=== PATIENT | female | born 1950 | race African-American/Black ===

== ENCOUNTER 2018-10-22 05:42 | Day surgery (SDC) | payer MEDICARE, OTHER ==
[2018-10-22] VITALS (12 sets, daily range): BP systolic 101–139; BP diastolic 53–75
[~2018-10-22] VITALS: Ht 149.9 cm; Wt 89.8 kg
--- NOTE | 2018-10-22 01:00 | Pre-op HX & Phy Repo 2 SIG ---
DATE OF ADMISSION: 10/22/2018 PREOPERATIVE CARDIOVASCULAR HISTORY AND PHYSICAL DATE OF SURGERY: 10/22/2018 SURGEON: Dr. Samuel Loza. PROCEDURE: Bunionectomy. HISTORY OF PRESENT ILLNESS: This female, who presents to the hospital for elective bunion surgery due to increasing pain and foot deformity reducing her ambulatory capacity. 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 MEDICATIONS: Reviewed and reconciled. ALLERGIES: Include morphine and penicillin. FAMILY HISTORY: Noncontributory. SOCIAL HISTORY: Prior smoker 40 pack years. No alcohol or substance abuse. REVIEW OF SYSTEMS: An echocardiogram done as an outpatient revealed normal ejection fraction, concentric hypertrophy, diastolic relaxation abnormality, and minimal tricuspid regurgitation. Myocardial perfusion scan done at [facility] in 2017 revealed no evidence of flow-limiting coronary artery disease and normal ejection fraction. The patient's permanent pacemaker was interrogated on 10/07/2018 and noted to have adequate battery life and appropriate sensing and pacing mechanism. The patient is euthyroid, on replacement therapy. Diabetes is managed with diet alone. There is no history of seizure or stroke. She has not had any recent respiratory insufficiency, wheezing, congestion, or steroid use. PHYSICAL EXAMINATION: GENERAL: Well developed and well nourished, in no distress. Moderately obese. VITAL SIGNS: As noted in the medical record. HEENT: Conjunctivae pink. Sclerae are anicteric. Oropharynx clear. Mucous membranes moist. NECK: Supple. Carotid upstrokes without delay. No thyromegaly. No tracheal deviation. LUNGS: Clear. BREASTS: Pendulous. No discrete masses. CARDIAC: Regular rhythm and rate. Normal S1, S2 with no murmur, rub, or gallop. Permanent pacemaker site clean and dry with no skin breakdown. ABDOMEN: Obese, soft and nontender with no bruits or pulsatile masses. EXTREMITIES: With trace pitting edema. Good distal pulses. No clubbing or cyanosis. Bunion is prominent on both feet. DIAGNOSTIC DATA: EKG with atrial pacing. No acute process. LABORATORY DATA: Labs reviewed. ASSESSMENT: The patient is an acceptable candidate to proceed with bunionectomy at this time under general anesthesia without any significant increase in perioperative cardiopulmonary risks despite her multiple medical problems. She has been clinically stable for a number of years on her current regimen with her recent cardiopulmonary studies confirming this impression. Routine postoperative care plan is recommended to include respiratory hygiene, titration of cardiovascular medications, DVT prophylaxis, and symptom-guided pain control. Aaron Barfield M.D. DR: MICHELLE JOB#: [id number] CC:
[2018-10-22] MEDS ORDERED: ASCORBIC ACID500 M4 ORAL (06:32)
[2018-10-22] MEDS ORDERED: RISPERDAL2 MG ORAL (06:32)
[2018-10-22] MEDS ORDERED: FUROSEMIDE20 M1 ORAL (06:32)
[2018-10-22] MEDS ORDERED: DEPAKOTE250 MG PO (06:32)
[2018-10-22] MEDS ORDERED: DOCUSATE SODIU100 MG ORAL (06:32)
[2018-10-22] MEDS ORDERED: ASPIRIN81 MG ORAL (06:32)
[2018-10-22] MEDS ORDERED: OMEPRAZOLE20 M2 ORAL (06:32)
[2018-10-22] MEDS ORDERED: FISH OIL 1,2001 EAC2 PO (06:32)
[2018-10-22] MEDS ORDERED: ACETAMINOPHEN325 M1 ORAL (06:32)
[2018-10-22] MEDS ORDERED: SYNTHROID100 MCG ORAL (06:32)
[2018-10-22] MEDS ORDERED: LORATADINE10 M1 PO (06:32)
[2018-10-22] MEDS ORDERED: ZOLPIDEM TARTRA10 MG ORAL (06:32)
[2018-10-22] MEDS ORDERED: PROAIR HFA8.5 GM INH (06:32)
[2018-10-22] MEDS ORDERED: Bacitracin Oint 15gm Tube TOPIC ONE (07:09)
[2018-10-22] MEDS ORDERED: Bupivacaine 0.5% Inj 30 ml vial INJ ONE (07:09)
[2018-10-22] MEDS ORDERED: Dexamethasone 4mg/ml vial ONE (07:09)
[2018-10-22] MEDS ORDERED: Lidocaine 1% Plain 30 ml INJ ONE (07:10)
--- NOTE | 2018-10-22 07:17 | Anethesia Preoperative Eval ---
Anesthesia Pre-op PMH/ROS General Date of Evaluation: Oct 22, 2018 Time of Evaluation: 07:15 Anesthesiologist: Michelle Savage CRNA ASA Score: ASA 3 Mallampati Score Class I : Soft palate, uvula, fauces, pillars visible Class II: Soft palate, uvula, fauces visible Class III: Soft palate, base of uvula visible Class IV: Only hard plate visible Mallampati Classification: Class II Surgeon: Denia Diagnosis: LEFT bunion Surgical Procedure: LEFT bunionectomy Anesthesia History: none Social History: smoking Family History: no anesthesia problems Allergies: Coded Allergies: MORPHINE (Verified Allergy, Intermediate, "feeling nervous", 10/21/18) PENICILLINS (Verified Allergy, Intermediate, itch, 10/21/18) Medications: see eMAR Patient NPO?: Yes NPO Date: Oct 22, 2018 NPO Time: 00:00 Past Medical History Cardiovascular: Reports: HTN, CAD, PA, other - permanent pacemaker Pulmonary: Reports: COPD Gastrointestinal/Genitourinary: Reports: GERD Neurologic/Psychiatric: Reports: other - bipolar disorder Endocrine: Reports: DM - diet controlled, hypothyroidism Hematology/Immune: Reports: anemia Musculoskeletal/Integumentary: Reports: DDD, other - venous insufficiency Other: obesity - Morbid obesity PMH Narrative: as noted above PSxH Narrative: TKR, lumbar surgery Anesthesia Pre-op Phys. Exam Physician Exam Last Vital Signs Date Time Temp Pulse Resp B/P (MAP) Pulse Ox O2 Delivery O2 Flow Rate FiO2 10/22/18 06:14 97.5 86 18 135/75 98 Room Air Constitutional: NAD Neurologic: other - alert & oriented Cardiovascular: RRR Respiratory: CTA Gastrointestinal: S/NT/ND Airway Exam Mallampati Score: Class II MO: full Neck: FROM TMD: >3FB ROM: full Teeth: other - edentuous Dentures: upper, lower Anesthesia Pre-op A/P Studies Pre-op Studies: echo - Normal EF, concentric hypertrophy, diastolic relaxation Risk Assessment & Plan Assessment: ASA 3, ok to proceed Plan: MAC Status Change Before Surgery: No Pre-Antibiotics Drug: Michelle Barth CRNA Oct 22, 2018 07:17
[2018-10-22] MEDS ORDERED: Succinylcholine 20mg/ml 10ml vial ONE (07:18)
[2018-10-22] MEDS ORDERED: fentaNYL 100 mcg/2 mL IV ONE (07:23)
[2018-10-22] MEDS ORDERED: Propofol 200mg/20ml IV ONE (07:23)
[2018-10-22] MEDS ORDERED: Midazolam 2mg/2ml Inj ONE (07:23)
[2018-10-22] MEDS ORDERED: Lidocaine 1% MPF 10mg/ml 5ml ONE (07:24)
[2018-10-22] MEDS ORDERED: Sterile Water Irrig 1000ml IRRIG ONE (07:30)
[2018-10-22] MEDS ORDERED: LR 1000ml ONE (07:30)
[2018-10-22] MEDS ORDERED: NS Irrig 1000ml IRRIG ONE (07:34)
--- NOTE | 2018-10-22 07:34 | Pre-Procedure Note/Attestation ---
Pre-Procedure Note/Attestation Complete Prior to Procedure Planned Procedure: left Procedure Narrative: Bunionectomy left foot Indications for Procedure Pre-Operative Diagnosis: Hallux Valgus with bunion deformity left foot Attestation I attest that I discussed the nature of the procedure; its benefits; risks and complications; and alternatives (and the risks and benefits of such alternatives ), prior to the procedure, with the patient (or the patient's legal artist representative). I attest that, if there was a reasonable possibility of needing a blood transfusion, the patient (or the patient's legal artist representative) was given the [facility] standardized written summary, pursuant to the [place] Blood Safety Act ([place] Health and Safety Code # 1645, as amended). I attest that I re-evaluated the patient just prior to the surgery and that there has been no change in the patient's H&P, except as documented below: Samuel Loza DPM Oct 22, 2018 07:34
[2018-10-22] MEDS ORDERED: Ketorolac 30mg Inj IV PRN (08:30)
--- NOTE | 2018-10-22 08:47 | Brief Operative Note ---
Immediate Post Operative Note Operative Note Pre-op Diagnosis: Hallux Valgus with bunion deformity left foot Procedure: Pitt Bunionectomy left foot Post-op Diagnosis: same as pre-op Surgeon: Denia Anesthesiologist: Michelle Savage CRNA Anesthesia: MAC Specimen: yes Complications: none Condition: stable Fluids: 250 Estimated Blood Loss: none Drains: none Implant(s) used?: No Samuel Loza DPM Oct 22, 2018 08:47
--- NOTE | 2018-10-22 08:54 | Immediate Post-Op Evaluation ---
Immediate Post-Op Evalulation Immediate Post-Op Evalulation Procedure: LEFT foot bunionectomy, osteotomy Date of Evaluation: Oct 22, 2018 Time of Evaluation: 08:47 IV Fluids: LR 600 ml Estimated Blood Loss: minimal Blood Pressure Systolic: 139 Blood Pressure Diastolic: 73 Pulse Rate: 79 Respiratory Rate: 12 O2 Sat by Pulse Oximetry: 97 Temperature (Fahrenheit): 99 Pain Score (1-10): 0 Nausea: No Vomiting: No Complications none Patient Status: awake, patent Hydration Status: adequate Drug: cefazolin 2 gm IV Given Within 1 Hr of Incision: Yes Time Given: 07:45 Michelle Savage CRNA Oct 22, 2018 08:54
--- NOTE | 2018-10-22 10:30 | History and Physical Report ---
DATE OF ADMISSION: 10/22/2018 DATE OF PLANNED PROCEDURE: 10/22/2018 PLANNED PROCEDURE: Bunion surgery. HISTORY OF PRESENT ILLNESS: The patient is a pleasant female, who is now referred for elective bunion surgery due to foot pain. She has been followed by Dr. Loza and conservative treatment has not improved the patient's symptoms and she is now referred for elective surgery. The patient has otherwise been doing well. She denies any fevers or chills. She has had no chest pain. She denies any shortness of breath. PAST MEDICAL HISTORY: Significant for history of ischemic cardiomyopathy, history of chronic lower back pain, bipolar disorder, COPD, asthma, hypothyroidism, obesity, history of left total knee replacement, history of hypertensive heart disease, and pacemaker. CURRENT MEDICATIONS: Reconciled and reviewed. ALLERGIES: Include morphine and penicillin. FAMILY HISTORY: Noncontributory. SOCIAL HISTORY: The patient is a prior smoker, but quit. No alcohol. No drugs. REVIEW OF SYSTEMS: GENERAL: No fevers or chills. HEENT: No headaches or visual changes. CARDIOPULMONARY: No chest pain or shortness of breath. GASTROINTESTINAL: No nausea or vomiting. GENITOURINARY: No urgency or frequency. MUSCULOSKELETAL: Mild knee pain. NEUROLOGIC: No history of seizures. PHYSICAL EXAMINATION: VITAL SIGNS: Temperature 98 degrees, blood pressure 120/76, pulse 70, and respirations 20. GENERAL: The patient is well developed, in no apparent distress. HEART: Regular rate and rhythm. LUNGS: Clear. ABDOMEN: Soft, nontender, and nondistended. EXTREMITIES: Without clubbing, cyanosis, or edema. LABORATORY DATA: Preoperative labs were unremarkable. EKG showed a paced rhythm. ASSESSMENT: This is a pleasant female with a history of hypertensive heart disease, chronic obstructive pulmonary disease, asthma, pacemaker, and ischemic cardiomyopathy referred for bunion surgery. She is medically stable for the planned procedure. Perioperative risk is average for her age and sex. We would proceed as planned. The patient has been instructed to continue her antihypertensive medications. The patient may need perioperative breathing treatments in the postoperative period. The patient will be followed here in the hospital while she is inpatient. A separate cardiology clearance has also been obtained. Nick Perez M.D. DR: PHILLIP JOB#: [id number] CC:
--- NOTE | 2018-10-22 11:30 | 48 Hour Post Anesthesia Eval ---
Post Anesthesia Evaluation Procedure: LEFT foot bunionectomy, osteotomy Date of Evaluation: Oct 22, 2018 Time of Evaluation: 11:29 Blood Pressure Systolic: 120 0: 73 Pulse Rate: 70 Respiratory Rate: 20 Temperature (Fahrenheit): 97.0 O2 Sat by Pulse Oximetry: 97 Airway: patent Nausea: No Vomiting: No Pain Intensity: 0 Hydration Status: adequate Cardiopulmonary Status: stable Mental Status/LOC: patient returned to baseline Follow-up Care/Observations: per podiatry Post-Anesthesia Complications: none Follow-up care needed: N/A Michelle Savage CRNA Oct 22, 2018 11:30
--- NOTE | 2018-10-22 12:25 | Diagnostic Imaging Report ---
Indication: Postsurgical Comparison: None Findings: 3 views of the left foot were obtained. Bunionectomy and the resection of the first MTP joint are noted on the examination. There is soft tissue swelling. IMPRESSION: Postop confirmation
--- NOTE | 2018-10-22 19:00 | Operative Note - Dictated ---
DATE OF OPERATION: 10/22/2018 SURGEON: Samuel Loza D.P.M. ANESTHESIOLOGIST: Michelle Savage CRNA. ANESTHESIA: Local standby. PREOPERATIVE DIAGNOSIS: Hallux abductovalgus with bunion deformity, left foot. POSTOPERATIVE DIAGNOSES: Hallux abductovalgus with bunion deformity, left foot plus degenerative joint disease, left first metatarsophalangeal joint. PROCEDURES PERFORMED: 1. Pitt type bunionectomy, left foot. 2. Extensor hallucis longus tendon lengthening, left foot. DESCRIPTION OF THE OPERATION: The patient was brought to the operating room and was placed on the operating room table in the supine position. IV sedation was administered by the anesthesiologist. Local anesthetic consisting of 0.5% Marcaine plain total of 20 mL was administered to the left foot. An ankle tourniquet was applied to the left lower extremity. The foot was prepped and draped in the usual sterile manner. An Esmarch bandage was utilized to exsanguinate the leg and the left ankle tourniquet was inflated to 250 mmHg. Attention was directed to the left hallux where an approximately 6 centimeter curvilinear skin incision was centered over the first metatarsophalangeal joint. The incision was deepened utilizing sharp and blunt dissection with care being taken to cauterize and ligate all bleeders. At the level of the capsule, a linear type capsulotomy was performed. The capsule was reflected medially and laterally and the head of the first metatarsal and base of the proximal phalanx were exposed. At this point, utilizing a sagittal saw, the medial eminence of the first metatarsal head was resected in total. The remaining bone was rasped smooth. The wound was copiously flushed utilizing sterile saline. It should be noted that the cartilage over the head of the first metatarsal was destroyed in approximately 50% of the head and cartilaginous damage was also noted over the base of the intermediate phalanx. At this point, a sagittal saw was utilized to resect the base of the proximal phalanx. The base was resected in total and removed from the surgical site. The wound was copiously flushed utilizing sterile saline. At this point, the extensor tendon was isolated utilizing sharp and blunt dissection. Z type tendon lengthening was performed and the hallux was brought into a rectus position. The wound was copiously flushed utilizing sterile saline. The capsule was then reapproximated utilizing 3-0 Vicryl in a simple interrupted type stitch. Subcutaneous tissue was then reapproximated utilizing 4-0 Vicryl in a buried knot type stitch. The skin was then reapproximated utilizing 4-0 nylon in a simple interrupted type stitch. The wound was dressed utilizing Adaptic, 4 x 4 gauze, and 3 inch Capri. The left ankle tourniquet was deflated and vascular supply was noted to all digits left foot. The patient tolerated the procedure well and left the operating room to recovery room with all vital signs stable. Samuel Loza D.P.M. DR: YAA JOB#: [id number] CC:
--- NOTE | 2018-10-22 21:30 | History and Physical Report ---
DATE OF ADMISSION: 10/22/2018 HISTORY OF PRESENT ILLNESS: This is a 68-year-old, female that is admitted today for an outpatient bunionectomy of her left foot. The patient has been under my care for the past several months for painful left foot. She has been treated in the office with conservative care, which consisted of debridements and padding and shoe-gear modification without any success and the patient was consulted on surgical correction. PAST MEDICAL HISTORY: Remarkable for ischemic cardiomyopathy, bipolar disorder, chronic obstructive pulmonary disease, asthma, hypothyroidism, lower back pain, hypertensive heart disease, and pacemaker. The patient underwent left total knee replacement. MEDICATIONS: Lasix, Depakote, ProAir, aspirin, Synthroid, and Risperdal. ALLERGIES: Morphine and penicillin. PODIATRIC PHYSICAL EXAMINATION: VASCULAR STUDIES: The dorsalis pedis and posterior tibial arteries are equally palpable measuring 1/4 bilaterally. The capillary filling time is less than 4 seconds to all digits bilaterally Homans sign is negative. Mild varicosities are noted in bilateral lower extremity. NEUROLOGICAL: The reflexes Achilles and patellar are intact measuring 1/4 bilaterally. Babinski is negative. Clonus is absent in bilateral lower extremity. Sharp dull proprioception and vibration sensations are all intact in bilateral lower extremity. MUSCULOSKELETAL EXAMINATION: Reveals a stage IV hallux abductovalgus with bunion deformity bilaterally. The hallux is under riding the second digit bilaterally. There are nonreducible hammertoe deformities of digits 2 through 5 bilaterally. The range of motion of the first metatarsophalangeal joint is reduced bilaterally. Mild crepitation is noted on the left side. There is reduced range of motion of the rear foot and ankle bilaterally. Severe pes planus deformity is noted bilaterally with posterior tibial dysfunction on the left. DERMATOLOGICAL EXAMINATION: Reveals dystrophic mycotic nails bilaterally. There is callus formation over the plantar medial aspect of the left hallux. ASSESSMENT: 1. Hallux abductovalgus with bunion deformity. 2. Hammertoe deformity. 3. Painful callus, left foot. PLAN: The patient is admitted today for bunionectomy of her left foot. Risks ,complications, and alternatives were discussed with the patient and grandson. Postoperative instructions were given to the patient and grandson. Postoperative medication was dispensed to the patient. The patient elected to proceed with surgery. Samuel Loza D.P.M. DR: LISSETTE JOB#: [id number] CC:
== END 2018-10-22 10:20 | disposition home or self-care (01) ==
LOC: SUR 05:42
DX: M20.12 Hallux valgus (acquired), left foot (principal); M19.072 Primary osteoarthritis, left ankle and foot; I10 Essential (primary) hypertension; Z95.0 Presence of cardiac pacemaker; I25.2 Old myocardial infarction; M19.90 Unspecified osteoarthritis, unspecified site; F31.9 Bipolar disorder, unspecified; J44.9 Chronic obstructive pulmonary disease, unspecified; E03.9 Hypothyroidism, unspecified; Z88.6 Allergy status to analgesic agent; Z88.0 Allergy status to penicillin; Z87.891 Personal history of nicotine dependence; I11.9 Hypertensive heart disease without heart failure; E66.01 Morbid (severe) obesity due to excess calories; E11.9 Type 2 diabetes mellitus without complications; Z68.41 Body mass index [BMI] 40.0-44.9, adult
CPT/HCPCS: 28292; 73630; J0330; J0690; J1100; J2001; J2250; J2704; J3010; J3490; 94003; 94150